=== PATIENT | female | born 1990 | race American Indian/Alaskan Native ===

== ENCOUNTER 2016-08-20 06:14 | Emergency (ER) | payer SELFPAY ==
[2016-08-20] MEDS ORDERED: NACL 0.9% 1000 ML 1,000 ML IV ONE (07:42)
[2016-08-20] MEDS ORDERED: TORADOL IV ONE (07:42)
[2016-08-20] MEDS ORDERED: NORCO PO ONE (07:42)
--- NOTE | 2016-08-20 07:44 | Emergency Department Report ---
ED ENT HPI - General Chief complaint: Sore Throat Stated complaint: SORE THROAT Time Seen by Provider: 08/20/16 07:36 Source: patient Mode of arrival: Ambulatory Limitations: No Limitations - History of Present Illness Initial comments: PT c/o sore throat x 1 week. No relief with otc medication. R side of throat hurts worse than left. pt denies sick contacts. pt states decrease po intake due to throat pain. MD complaint: sore throat Onset/Timin -: Gradual, week(s) Location: throat Severity: severe Severity scale (0 -10): 10 Quality: other (pt states she does not know how to describe the pain ) Consistency: constant Improves with: none Worsens with: swallowing, eating, other (palpation of R side of neck ) Associated Symptoms: fever, pain with swallowing, sore throat. denies: cough - Related Data Allergies Allergy/AdvReac Type Severity Reaction Status Date / Time No Known Allergies Allergy Unverified 08/20/16 06:19 ED Dental HPI - General Chief complaint: Sore Throat Stated complaint: SORE THROAT Time Seen by Provider: 08/20/16 07:36 Source: patient Mode of arrival: Ambulatory Limitations: No Limitations - Related Data Allergies Allergy/AdvReac Type Severity Reaction Status Date / Time No Known Allergies Allergy Unverified 08/20/16 06:19 ED Review of Systems ROS: Stated complaint: SORE THROAT Other details as noted in HPI Constitutional: see HPI, fever ENT: as per HPI, throat pain. denies: ear pain Respiratory: denies: cough Gastrointestinal: other (decrease po intake. ate fruit last night ). denies: nausea, vomiting ED Past Medical Hx - Past Medical History Previous Medical History?: No - Surgical History Past Surgical History?: No - Social History Smoking Status: Never Smoker Substance Use Type: None ED Physical Exam - General Limitations: No Limitations General appearance: alert, in no apparent distress - Head Head exam: Present: atraumatic, normocephalic, normal inspection - Eye Eye exam: Present: normal appearance. Absent: conjunctival injection - ENT ENT exam: Present: mucous membranes moist, TM's normal bilaterally, normal external ear exam - Expanded ENT Exam Expanded Mouth exam: Present: muffled voice. Absent: drooling, trismus Throat exam: Positive: tonsillar erythema, tonsillomegaly, tonsillar exudate, R peritonsillar mass - Neck Neck exam: Present: normal inspection, tenderness, full ROM, lymphadenopathy - Respiratory Respiratory exam: Present: normal lung sounds bilaterally. Absent: respiratory distress, wheezes - Cardiovascular Cardiovascular Exam: Present: normal rhythm, tachycardia - GI/Abdominal GI/Abdominal exam: Present: soft. Absent: tenderness - Extremities Exam Extremities exam: Present: normal inspection, full ROM - Back Exam Back exam: Present: normal inspection, full ROM. Absent: tenderness, CVA tenderness (R), CVA tenderness (L), muscle spasm, paraspinal tenderness, vertebral tenderness - Neurological Exam Neurological exam: Present: alert, oriented X3 - Psychiatric Psychiatric exam: Present: normal affect, normal mood - Skin Skin exam: Present: warm, dry ED Course Vital Signs 08/20/16 08/20/16 08/20/16 06:19 08:04 10:24 Temperature 100.7 F H Pulse Rate 120 H Respiratory 18 22 20 Rate Blood Pressure 146/91 Blood Pressure [Left] O2 Sat by Pulse 98 99 Oximetry 08/20/16 11:28 Temperature 98.4 F Pulse Rate 108 H Respiratory 20 Rate Blood Pressure Blood Pressure 140/92 [Left] O2 Sat by Pulse 99 Oximetry - Reevaluation(s) Reevaluation #1: 08/20/16 07:44 PT aware she is to be NPO. PT aware of plan of care. PT has no questions at this time. Reevaluation #2: 08/20/16 10:[address] report. PT states she is feeling better. PT agrees to transfer. Dr Aldrich aware of pt. Reevaluation #3: 08/20/16 10:32 PT aware of plan of care. No questions at this time. - Consultations Consultation #1: 08/20/16 10:[address] Chacon, ENT. States if pt is transferred to [place] [facility], she will see in ED and evaluate - if sent with copy of CT. - Pulse Oximetry Interpretation Digit-Finger Initial Pulse Oximetry Readin Actions Taken: none ED Medical Decision Making - Lab Data Result diagrams: 08/20/16 07:48 08/20/16 07:48 Lab Results 08/20/16 08/20/16 08/20/16 Range/Units 07:48 07:48 07:48 WBC 16.8 H (4.5-11.0) K/mm3 RBC 4.42 (3.65-5.03) M/mm3 Hgb 13.6 (10.1-14.3) gm/dl Hct 40.2 (30.3-42.9) % MCV 91 (79-97) fl MCH 31 (28-32) pg MCHC 34 (30-34) % RDW 12.2 L (13.2-15.2) % Plt Count 311 (140-440) K/mm3 Lymph % (Auto) 11.5 L (13.4-35.0) % [place] % (Auto) 7.2 (0.0-7.3) % Eos % (Auto) 0.3 (0.0-4.3) % Baso % (Auto) 0.3 (0.0-1.8) % Lymph # 1.9 (1.2-5.4) K/mm3 [place] # 1.2 H (0.0-0.8) K/mm3 Eos # 0.1 (0.0-0.4) K/mm3 Baso # 0.0 (0.0-0.1) K/mm3 Seg Neutrophils % 80.7 H (40.0-70.0) % Seg Neutrophils # 13.6 H (1.8-7.7) K/mm3 Sodium 141 (137-145) mmol/L Potassium 4.1 (3.6-5.0) mmol/L Chloride 99.6 (98-107) mmol/L Carbon Dioxide 28 (22-30) mmol/L Anion Gap 18 mmol/L BUN 6 L (7-17) mg/dL Creatinine 0.7 (0.7-1.2) mg/dL Estimated GFR > 60 ml/min BUN/Creatinine Ratio 8.57 % Glucose 103 H (65-100) mg/dL Calcium 9.3 (8.4-10.2) mg/dL Urine Color (Yellow) Urine Turbidity (Clear) Urine pH (5.0-7.0) Ur Specific [place] (1.003-1.030) Urine Protein (Negative) mg/dL Urine Glucose (UA) (Negative) mg/dL Urine Ketones (Negative) mg/dL Urine Blood (Negative) Urine Nitrite (Negative) Ur Reducing Substances Urine Bilirubin (Negative) Urine Ictotest Urine Urobilinogen (<2.0) mg/dL Ur Leukocyte Esterase (Negative) Urine WBC (Auto) (0.0-6.0) /HPF Urine RBC (Auto) (0.0-6.0) /HPF U Epithel Cells (Auto) (0-13.0) /HPF Urine Mucus /HPF Urine HCG, Qual (Negative) Monoscreen Negative (Negative) 08/20/16 Range/Units 08:11 WBC (4.5-11.0) K/mm3 RBC (3.65-5.03) M/mm3 Hgb (10.1-14.3) gm/dl Hct (30.3-42.9) % MCV (79-97) fl MCH (28-32) pg MCHC (30-34) % RDW (13.2-15.2) % Plt Count (140-440) K/mm3 Lymph % (Auto) (13.4-35.0) % [place] % (Auto) (0.0-7.3) % Eos % (Auto) (0.0-4.3) % Baso % (Auto) (0.0-1.8) % Lymph # (1.2-5.4) K/mm3 [place] # (0.0-0.8) K/mm3 Eos # (0.0-0.4) K/mm3 Baso # (0.0-0.1) K/mm3 Seg Neutrophils % (40.0-70.0) % Seg Neutrophils # (1.8-7.7) K/mm3 Sodium (137-145) mmol/L Potassium (3.6-5.0) mmol/L Chloride (98-107) mmol/L Carbon Dioxide (22-30) mmol/L Anion Gap mmol/L BUN (7-17) mg/dL Creatinine (0.7-1.2) mg/dL Estimated GFR ml/min BUN/Creatinine Ratio % Glucose (65-100) mg/dL Calcium (8.4-10.2) mg/dL Urine Color Yellow (Yellow) Urine Turbidity Clear (Clear) Urine pH 5.0 (5.0-7.0) Ur Specific [place] 1.020 (1.003-1.030) Urine Protein <15 mg/dl (Negative) mg/dL Urine Glucose (UA) Neg (Negative) mg/dL Urine Ketones 80 (Negative) mg/dL Urine Blood Mod (Negative) Urine Nitrite Neg (Negative) Ur Reducing Substances Not Reportable Urine Bilirubin Neg (Negative) Urine Ictotest Not Reportable Urine Urobilinogen < 2.0 (<2.0) mg/dL Ur Leukocyte Esterase Neg (Negative) Urine WBC (Auto) 2.0 (0.0-6.0) /HPF Urine RBC (Auto) 3.0 (0.0-6.0) /HPF U Epithel Cells (Auto) 5.0 (0-13.0) /HPF Urine Mucus Few /HPF Urine HCG, Qual Negative (Negative) Monoscreen (Negative) - Radiology Data Radiology results: report reviewed CT neck- 2 cm tonsillar abscess - Differential Diagnosis pharyngitis, viral uri, peritonsillar abscess Critical care attestation.: If time is entered above; I have spent that time in minutes in the direct care of this critically ill patient, excluding procedure time. ED Disposition Clinical Impression: Peritonsillar abscess Disposition: DC/TX ANOTHER TYPE HEALTHCARE Is pt being admited?: No Does the pt Need Aspirin: No Condition: Stable Referrals: PRIMARY CARE, [Primary Care Provider] - 3-5 Days Time of Disposition: 10:33
[2016-08-20 07:59] LABS: Basophils % (Auto) 0.3 % (0.0-1.8); Eosinophils % (Auto) 0.3 % (0.0-4.3); Hematocrit 40.2 % (30.3-42.9); Hemoglobin 13.6 gm/dl (10.1-14.3); Mean Corpuscular HGB Conc 34 % (30-34); Mean Corpuscular Hemoglobin 31 pg (28-32); Mean Corpuscular Volume 91 fl (79-97); Platelet Count 311 K/mm3 (140-440); Red Blood Count 4.42 M/mm3 (3.65-5.03); Red Cell Distribution Width 12.2 % (13.2-15.2); White Blood Count 16.8 K/mm3 (4.5-11.0)
[2016-08-20 08:12] LABS: Anion Gap 18 mmol/L; Calcium 9.3 mg/dL (8.4-10.2); Carbon Dioxide 28 mmol/L (22-30); Chloride 99.6 mmol/L (98-107); Glucose 103 mg/dL (65-100); Potassium 4.1 mmol/L (3.6-5.0); Sodium 141 mmol/L (137-145)
[2016-08-20 08:23] LABS: Bilirubin,Urine NEG (Negative); Blood,Urine MOD (Negative); Ketones,Urine 80 mg/dL (Negative); Leukocyte Esterase,Urine NEG (Negative); Mucus,Urine FEW /HPF; Nitrite,Urine NEG (Negative); Protein,Urine <15 mg/dL mg/dL (Negative); Urobilinogen,Urine < 2.0 mg/dL (<2.0)
[2016-08-20] MEDS ORDERED: NACL ONE (08:27)
[2016-08-20 08:43] LABS: BUN/Creatinine Ratio 8.57; Blood Urea Nitrogen 6 mg/dL (7-17)
[2016-08-20] MEDS ORDERED: ROCEPHIN 1,000 MG in NACL 0.9% 50 ML IV STA (08:57)
[2016-08-20] MEDS ORDERED: ROCEPHIN/NS 1 GM/50 ML 1 GM/50 ML BAG IV ONE (09:30)
--- NOTE | 2016-08-20 09:43 | Cat Scan Report ---
CT NECK WITH CONTRAST INDICATION: Right tonsillar hypertrophy. COMPARISON: None similar at this institution. FINDINGS: Axial, sagittal and coronal CT reconstructions through the neck obtained following IV contrast. Right more than left tonsillar enlargement. Approximately 2.2 x 2 cm hypodensity within the right tonsil measures 54 HU, representing abscess/fluid/edema. Its craniocaudal extent is approximately 3 cm. Slight stranding in the right parapharyngeal fat pad. Mild retropharyngeal fluid/edema may also be noted, more so on the right. Moderate nasopharyngeal airway effacement as well. Approximately 3 x 1.6 cm adenoids may also be directly visualized. Multiple bilateral cervical lymph nodes noted, right more than left with the largest level II lymph node on the right approximately 1.9 x 1.2 cm, axial image 79, series 2. Grossly unremarkable salivary glands, hypopharynx, larynx, thyroid and the lung apices. Patent neck vessels. Mild leftward nasal septal deviation. Clear imaged paranasal sinuses and mastoid air cells. Normal visualized eye globes and intracranial appearance. Intact bones. CONCLUSION: 1. Acute tonsillitis with approximately 2 cm right tonsillar abscess, as described. 2. Few other incidental findings, as above. Thank you for the opportunity to participate in this patient's care.
[2016-08-20 11:28] VITALS: BP 140/92
== END 2016-08-20 11:29 | disposition other institution (70) ==
LOC: ED 06:14
DX: J36 Peritonsillar abscess (principal)
CPT/HCPCS: 36415; 70491; 80048; 81001; 81025; 85025; 86308; 87116; 87430; 96361; 96365; 96375; 99285; J0696; J1885; J2930; J7030; Q9967